=== PATIENT | male | born 1990 | race Caucasian/White ===

== ENCOUNTER 2016-10-18 16:51 | Emergency (ER) | payer OTHER ==
--- NOTE | 2016-10-18 18:40 | REPUSA ---
CLINICAL HISTORY: Neck pain. TECHNIQUE: Multiple axial images were obtained through the cervical spine. Images were also reconstru cted in coronal and sagittal planes. The study was performed without IV contrast. COMMENTS: There is no fracture or spondylolisthesis visualized. The paraspinal soft tissues are unremarkable. T here are no lytic or blastic lesions. Straightening of cervical lordosis is seen, suggesting muscular spasm. There is evidence of minimal m ultilevel disk disease, demonstrated by minimal osteophytosis and endplate sclerosis. No significant disk herniation is noted at any level. Canal and foramina remain patent. IMPRESSION: 1. No fracture or spondylolisthesis. 2. Straightening of cervical lordosis is seen, suggesting muscular spasm. 3. Minimal multilevel spondylosis. Thank you for your kind referral of this patient.
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
[2016-10-18] MEDS ORDERED: ONDANSETRON 4 MG ORAL DISINTEGRATING TAB (S0181) As Ordered ONE (20:24)
[2016-10-18] MEDS ORDERED: NORCO, ANEXSIA 5/325MG TABLET (HYDROcodone/ACETAMINOPHEN) As Ordered ONE (20:24)
--- NOTE | 2016-10-18 20:32 | EDDOCDS ---
Physician Documentation [facility] Name: Daniel Ho Age: 26 yrs Sex: Male : 1990 Arrival Date: 10/18/2016 Time: 16:51 Bed TR8 Private MD: Other - Complete Info On Cds Disposition: 10/18/16 20:21 Discharged to Home/Self Care. Impression: Concussion without loss of consciousness, Contusion of other part of head. - Condition is Stable. - Discharge Instructions: Concussion, Adult, Facial or Scalp Contusion, Head Injury, Adult. - Prescriptions for [place] 5- 325 mg Oral Tablet - take 1 tablet by ORAL route every 6 hours As needed MDD: 4 tabs; 12 tablet. ZOFRAN ODT 4 mg - dissolve 1 tablet by ORAL route 4 times per day As needed do not chew, do not swallow whole; 10 tablet. - Medication Reconciliation, Local Pharmacy Hours form. - Follow up: Private Physician; When: Call to arrange an appointment; Reason: Recheck today's complaints, Continuance of care. - Problem is new. - Symptoms are unchanged. Historical: - Allergies: no known allergies; - Home Meds: 1. Excedrin Extra Strength Oral took 3 at approx 0230 today - PMHx: none; - PSHx: none; - Social history: Smoking status: Patient uses tobacco products, light tobacco smoker. No barriers to communication noted, The patient speaks fluent Thai. - Family history: Not pertinent. - : The pt / caregiver states he / she is not on anticoagulants. Home medication list is obtained from the patient. - Exposure Risk Screening:: None identified. Vital Signs: 10/18 16:54 BP 139 / 94 RA Sitting (auto/reg); Pulse 87; Resp 18 S; Temp 98.4(O); Pulse Ox 100% on mt4 R/A; Weight 68.04 kg / 150 lbs (R); Height 5 ft. 10 in. (177.80 cm) (R); Pain 8/10; 19:53 BP 148 / 79; Pulse 79; Resp 16; Temp 98.3(TE); Pulse Ox 100% on R/A; Pain 8/10; sew 16:54 Body Mass Index 21.52 (68.04 kg, 177.80 cm) mt4 Cecelia Coma Score: 17:07 Eye Response: spontaneous(4). Verbal Response: oriented(5). Motor Response: obeys jf3 commands(6). Total: 15. MDM: 17:28 CT Maxilofacial W/out Contrast Ordered. EDMS 17:28 CT Head Without Contrast Ordered. EDMS 17:30 Apply Christina Collar to Patient. ordered. jf3 17:31 CT Spine,Cervical W/o Contrast Ordered. EDMS 18:13 [facility] Payment Agreement was scanned into [employer] and attached to record. gjb 18:14 [facility] was scanned into [employer] and attached to record. gjb 18:14 [facility] Payment Agreement was scanned into [employer] and attached to record. gjb 20:14 CT Head Without Contrast Reviewed. mo1 20:14 CT Maxilofacial W/out Contrast Reviewed. mo1 20:14 CT Spine,Cervical W/o Contrast Reviewed. mo1 20:20 Ondansetron ODT Oral Disintegrating Tablet 4 mg PO once ordered. mo1 20:20 HYDROcodone-acetaminophen 5 mg-325 mg 1 tabs PO once ordered. mo1 Administered Medications: 20:29 Drug: Ondansetron ODT 4 mg [ondansetron 4 mg disintegrating tablet (1 tabs)] Route: PO; jf3 20:31 Follow up: Response: Pt left department before re-evaluation is appropriate jf3 20:29 Drug: HYDROcodone-acetaminophen 1 tabs [hydrocodone 5 mg-acetaminophen 325 mg tablet (1 jf3 tabs)] Route: PO; 20:31 Follow up: Response: Pt left department before re-evaluation is appropriate jf3 Signatures: Dispatcher [employer] EDMT Ney Ferro PA PA mo1 Saulo Daugherty,RN RN jf3 Joanne Lovell The chart was reviewed and I authenticate all verbal orders and agree with the evaluation and treatment provided.Corrections: (The following items were deleted from the chart) 17:33 17:28 CT Neck without contrast+CT ordered. EDMT EDMS Attachments: 18:14 [facility] Payment Agreement gjb MTDD
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
--- NOTE | 2016-10-20 21:32 | EDDOCDS ---
Physician Documentation [facility] Name: Daniel Ho Age: 26 yrs Sex: Male : 1990 Arrival Date: 10/18/2016 Time: 16:51 Bed TR8 Private MD: Other - Complete Info On Cds Disposition: 10/18/16 20:21 Discharged to Home/Self Care. Impression: Concussion without loss of consciousness, Contusion of other part of head. - Condition is Stable. - Discharge Instructions: Concussion, Adult, Facial or Scalp Contusion, Head Injury, Adult. - Prescriptions for [place] 5- 325 mg Oral Tablet - take 1 tablet by ORAL route every 6 hours As needed MDD: 4 tabs; 12 tablet. ZOFRAN ODT 4 mg - dissolve 1 tablet by ORAL route 4 times per day As needed do not chew, do not swallow whole; 10 tablet. - Medication Reconciliation, Local Pharmacy Hours form. - Follow up: Private Physician; When: Call to arrange an appointment; Reason: Recheck today's complaints, Continuance of care. - Problem is new. - Symptoms are unchanged. Historical: - Allergies: no known allergies; - Home Meds: 1. Excedrin Extra Strength Oral took 3 at approx 0230 today - PMHx: none; - PSHx: none; - Social history: Smoking status: Patient uses tobacco products, light tobacco smoker. No barriers to communication noted, The patient speaks fluent Nepali. - Family history: Not pertinent. - : The pt / caregiver states he / she is not on anticoagulants. Home medication list is obtained from the patient. - Exposure Risk Screening:: None identified. Vital Signs: 10/18 16:54 BP 139 / 94 RA Sitting (auto/reg); Pulse 87; Resp 18 S; Temp 98.4(O); Pulse Ox 100% on mt4 R/A; Weight 68.04 kg / 150 lbs (R); Height 5 ft. 10 in. (177.80 cm) (R); Pain 8/10; 19:53 BP 148 / 79; Pulse 79; Resp 16; Temp 98.3(TE); Pulse Ox 100% on R/A; Pain 8/10; sew 16:54 Body Mass Index 21.52 (68.04 kg, 177.80 cm) mt4 Cecelia Coma Score: 17:07 Eye Response: spontaneous(4). Verbal Response: oriented(5). Motor Response: obeys jf3 commands(6). Total: 15. MDM: 17:28 CT Maxilofacial W/out Contrast Ordered. EDMS 17:28 CT Head Without Contrast Ordered. EDMS 17:30 Apply Christina Collar to Patient. ordered. jf3 17:31 CT Spine,Cervical W/o Contrast Ordered. EDMS 18:13 [facility] Payment Agreement was scanned into [employer] and attached to record. gjb 18:14 [facility] was scanned into [employer] and attached to record. gjb 18:14 [facility] Payment Agreement was scanned into [employer] and attached to record. gjb 20:14 CT Head Without Contrast Reviewed. mo1 20:14 CT Maxilofacial W/out Contrast Reviewed. mo1 20:14 CT Spine,Cervical W/o Contrast Reviewed. mo1 20:20 Ondansetron ODT Oral Disintegrating Tablet 4 mg PO once ordered. mo1 20:20 HYDROcodone-acetaminophen 5 mg-325 mg 1 tabs PO once ordered. mo1 21:20 Financial registration complete. [facility] 10/19 18:27 T-Sheet-- Draft Copy was scanned into [email or web address] and attached to record. klr Administered Medications: 10/18 20:29 Drug: Ondansetron ODT 4 mg [ondansetron 4 mg disintegrating tablet (1 tabs)] Route: PO; jf3 20:31 Follow up: Response: Pt left department before re-evaluation is appropriate jf3 20:29 Drug: HYDROcodone-acetaminophen 1 tabs [hydrocodone 5 mg-acetaminophen 325 mg tablet (1 jf3 tabs)] Route: PO; 20:31 Follow up: Response: Pt left department before re-evaluation is appropriate jf3 Signatures: Dispatcher [employer] EDSD Ney Ferro PA PA mo1 Saulo Daugherty RN RN josé luis3 Joanne Lovell Kathie klr The chart was reviewed and I authenticate all verbal orders and agree with the evaluation and treatment provided.Corrections: (The following items were deleted from the chart) 17:33 17:28 CT Neck without contrast+CT ordered. EDSD EDMS Attachments: 18:14 [facility] Payment Agreement [facility] 01/22 18:27 T-Sheet-- Draft Copy klr Chart Complete MTDD
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
--- NOTE | 2016-10-20 21:32 | EDDOCDS ---
Physician Documentation [facility] Name: Daniel Ho Age: 26 yrs Sex: Male : 1990 Arrival Date: 10/18/2016 Time: 16:51 Bed TR8 Private MD: Other - Complete Info On Cds Disposition: 10/18/16 20:21 Discharged to Home/Self Care. Impression: Concussion without loss of consciousness, Contusion of other part of head. - Condition is Stable. - Discharge Instructions: Concussion, Adult, Facial or Scalp Contusion, Head Injury, Adult. - Prescriptions for [place] 5- 325 mg Oral Tablet - take 1 tablet by ORAL route every 6 hours As needed MDD: 4 tabs; 12 tablet. ZOFRAN ODT 4 mg - dissolve 1 tablet by ORAL route 4 times per day As needed do not chew, do not swallow whole; 10 tablet. - Medication Reconciliation, Local Pharmacy Hours form. - Follow up: Private Physician; When: Call to arrange an appointment; Reason: Recheck today's complaints, Continuance of care. - Problem is new. - Symptoms are unchanged. Historical: - Allergies: no known allergies; - Home Meds: 1. Excedrin Extra Strength Oral took 3 at approx 0230 today - PMHx: none; - PSHx: none; - Social history: Smoking status: Patient uses tobacco products, light tobacco smoker. No barriers to communication noted, The patient speaks fluent Sinhala. - Family history: Not pertinent. - : The pt / caregiver states he / she is not on anticoagulants. Home medication list is obtained from the patient. - Exposure Risk Screening:: None identified. Vital Signs: 10/18 16:54 BP 139 / 94 RA Sitting (auto/reg); Pulse 87; Resp 18 S; Temp 98.4(O); Pulse Ox 100% on mt4 R/A; Weight 68.04 kg / 150 lbs (R); Height 5 ft. 10 in. (177.80 cm) (R); Pain 8/10; 19:53 BP 148 / 79; Pulse 79; Resp 16; Temp 98.3(TE); Pulse Ox 100% on R/A; Pain 8/10; sew 16:54 Body Mass Index 21.52 (68.04 kg, 177.80 cm) mt4 [place] Coma Score: 17:07 Eye Response: spontaneous(4). Verbal Response: oriented(5). Motor Response: obeys jf3 commands(6). Total: 15. MDM: 17:28 CT Maxilofacial W/out Contrast Ordered. EDMS 17:28 CT Head Without Contrast Ordered. EDMS 17:30 Apply Christina Collar to Patient. ordered. jf3 17:31 CT Spine,Cervical W/o Contrast Ordered. EDMS 18:13 [facility] Payment Agreement was scanned into [employer] and attached to record. gjb 18:14 [facility] was scanned into [employer] and attached to record. gjb 18:14 [facility] Payment Agreement was scanned into [employer] and attached to record. gjb 20:14 CT Head Without Contrast Reviewed. mo1 20:14 CT Maxilofacial W/out Contrast Reviewed. mo1 20:14 CT Spine,Cervical W/o Contrast Reviewed. mo1 20:20 Ondansetron ODT Oral Disintegrating Tablet 4 mg PO once ordered. mo1 20:20 HYDROcodone-acetaminophen 5 mg-325 mg 1 tabs PO once ordered. mo1 21:20 Financial registration complete. [facility] 10/19 18:27 T-Sheet-- Draft Copy was scanned into [employer] and attached to record. klr Administered Medications: 10/18 20:29 Drug: Ondansetron ODT 4 mg [ondansetron 4 mg disintegrating tablet (1 tabs)] Route: PO; jf3 20:31 Follow up: Response: Pt left department before re-evaluation is appropriate jf3 20:29 Drug: HYDROcodone-acetaminophen 1 tabs [hydrocodone 5 mg-acetaminophen 325 mg tablet (1 jf3 tabs)] Route: PO; 20:31 Follow up: Response: Pt left department before re-evaluation is appropriate jf3 Signatures: Dispatcher [employer] EDMN Ney Ferro PA PA mo1 Saulo Daugherty RN RN josé luis3 Joanne Lovell Kathie klr The chart was reviewed and I authenticate all verbal orders and agree with the evaluation and treatment provided.Corrections: (The following items were deleted from the chart) 17:33 17:28 CT Neck without contrast+CT ordered. EDMN EDMS Attachments: 18:14 [facility] Payment Agreement [facility] 01/22 18:27 T-Sheet-- Draft Copy klr Chart Complete MTDD
== END 2016-10-18 20:31 | disposition home or self-care (01) ==
LOC: M ED 16:51
DX: S00.83XA Contusion of other part of head, initial encounter (principal); S06.0X0A Concussion without loss of consciousness, initial encounter; V47.5XXA Car driver injured in collision with fixed or stationary object in traffic accident, initial encounter; Y92.410 Unspecified street and highway as the place of occurrence of the external cause; Y93.89 Activity, other specified; Y99.8 Other external cause status; F17.210 Nicotine dependence, cigarettes, uncomplicated